=== PATIENT | male | born 1995 | race Caucasian/White ===

== ENCOUNTER 2016-12-18 15:28 | Emergency (ER) | payer MEDICAID ==
[2016-12-18 15:47] VITALS: BP 126/83
--- NOTE | 2016-12-18 16:34 | ER Document Report ---
ED General - General Chief Complaint: Sore Throat Stated Complaint: DIFFICULTY BREATHING/CHEST TIGHT Time Seen by Provider: 12/18/16 16:30 Mode of Arrival: Ambulatory Information source: Patient Notes: 21-year-old male complains about 3 day history of sore throat diffuse body ache sharp anterior chest pain with coughing occasional nonproductive cough temperature 100.3 chills. The patient denies vomiting, diarrhea, abdominal pain , back pain, numbness weakness to extremities, or syncope. Physical Exam: General: Alert, appears well. HEENT: Normocephalic. Atraumatic. PERRLA. Extraocular movements intact. Discs sharp no papilledema tympanic membranes canals clear Oropharynx with erythema swelling and white exudate tonsillar area bilaterally no stridor worsen this drooling Neck: Supple. Tender adenopathy bilaterally no nuchal rigidity Respiratory: No respiratory distress. Clear and equal breath sounds bilaterally. Cardiovascular: Regular rate and rhythm. Abdominal: Normal Inspection. Soft, non-tender. No distension. Normal Bowel Sounds. Back: Non-tender. No deformity or step off. Extremities warm to plus pulses of cyanosis no edema Neurological: Speech clear mentation normal moves extremities well Psychological: Normal affect. Normal Mood. Skin: Warm. Dry. Normal color. TRAVEL OUTSIDE OF THE [place] IN LAST 30 DAYS: No - Related Data Allergies/Adverse Reactions: No Known Allergies Allergy (Verified 12/18/16 16:10) Past Medical History - Social History Smoking Status: Unknown if Ever Smoked Family History: Reviewed & Not Pertinent Patient has suicidal ideation: No Patient has homicidal ideation: No - Medical History Medical History: Negative Renal/ Medical History: Denies: Hx Peritoneal Dialysis - Immunizations Hx Diphtheria, Pertussis, Tetanus Vaccination: Yes - GIVEN TODAY Review of Systems - Review of Systems Constitutional: See HPI EENT: See HPI Cardiovascular: See HPI. denies: Dizziness Respiratory: See HPI Gastrointestinal: See HPI Genitourinary: denies: Burning, Dysuria Musculoskeletal: denies: Leg swelling Skin: denies: Rash Hematologic/Lymphatic: denies: Swollen glands Neurological/Psychological: denies: Weakness, Numbness Physical Exam - Vital signs Vitals: Pulse Resp BP Pulse Ox 108 H 16 126/83 H 98 12/18/16 15:45 12/18/16 15:45 12/18/16 15:45 12/18/16 15:45 Course - Re-evaluation Re-evalutation: 12/18/16 16:32 Presentation consistent with acute pharyngitis. Discharged with antibiotics follow with his physician in [place] - Vital Signs Vital signs: Temp Pulse Resp BP Pulse Ox 102.7 F H 108 H 16 126/83 H 98 12/18/16 15:47 12/18/16 15:45 12/18/16 15:45 12/18/16 15:45 12/18/16 15:45 Discharge - Discharge Clinical Impression: Acute pharyngitis Qualifiers: Pharyngitis/tonsillitis etiology: unspecified etiology Qualified Code(s): J02.9 - Acute pharyngitis, unspecified Condition: Stable Disposition: HOME, SELF-CARE Additional Instructions: Sore Throat Sore throats may be caused by viruses, bacteria, or fungi. Most are due to a virus, and must get better on their own. Bacterial sore throats, particularly those due to "strep," need treatment with antibiotics. If an antibiotic is prescribed, be sure to take the medication for a full 10 days. Failure to take the antibiotic can result in complications such as rheumatic fever. Sometimes, an injection of antibiotics is given instead of pills or liquid. This single "shot" is equal in effectiveness to the oral medication. To relieve symptoms, take acetaminophen for pain. Sip clear liquids frequently, or eat popsicles or ice chips. Anesthetic sprays or lozenges may help. Make sure the air in the room is not too dry. Avoid using decongestants or antihistamines. Call the doctor if there is no improvement in two days, or if you have difficulty breathing, increasing throat pain, high fever, rash, or frequent vomiting. Prescriptions: Azithromycin [Zithromax 250 mg Tablet] 250 mg PO ASDIR PRN #6 tablet PRN Reason: Referrals: [facility] [Provider Group] - Follow up in 1 week
== END 2016-12-18 16:35 | disposition home or self-care (01) ==
LOC: ER 15:28
DX: J02.9 Acute pharyngitis, unspecified (principal); R07.9 Chest pain, unspecified; R05 Cough; R68.83 Chills (without fever)
CPT/HCPCS: 99282

== ENCOUNTER 2018-07-15 10:02 | Emergency (ER) | payer MEDICAID, OTHER ==
--- NOTE | 2018-07-15 11:23 | ER Document Report ---
HPI - HPI Patient complains to provider of: Finger laceration Time Seen by Provider: 07/15/18 11:08 Onset: This morning Onset/Duration: Sudden Quality of pain: Achy Pain Level: 2 Context: Patient states that he cut his finger on a piece of metal on a vehicle around 845. Patient with laceration to the left fourth finger. Patient is right-hand dominant. Patient reports tetanus immunizations currently up-to-date. Associated Symptoms: Other - Left fourth finger laceration Exacerbated by: Movement Relieved by: Denies Similar symptoms previously: No Recently seen / treated by doctor: No - ROS ROS below otherwise negative: Yes Systems Reviewed and Negative: Yes All other systems reviewed and negative - MUSCULOSKELETAL Musculoskeletal: REPORTS: Extremity pain - DERM Skin Color: Normal Skin Problems: Laceration Past Medical History - General Information source: Patient - Social History Smoking Status: Current Every Day Smoker Smoking Education Provided: Yes Frequency of alcohol use: None Drug Abuse: None Occupation: [employer] with: Family Family History: Reviewed & Not Pertinent - Medical History Medical History: Negative Renal/ Medical History: Denies: Hx Peritoneal Dialysis Surgical Hx: Negative - Immunizations Hx Diphtheria, Pertussis, Tetanus Vaccination: Yes - GIVEN TODAY Vertical Provider Document - CONSTITUTIONAL Agree With Documented VS: Yes Exam Limitations: No Limitations General Appearance: WD/WN, No Apparent Distress - INFECTION CONTROL TRAVEL OUTSIDE OF THE [place] IN LAST 30 DAYS: No - HEENT HEENT: Atraumatic, Normocephalic - NECK Neck: Normal Inspection - RESPIRATORY Respiratory: No Respiratory Distress - CARDIOVASCULAR Pulses: Normal: Radial - MUSCULOSKELETAL/EXTREMETIES Musculoskeletal/Extremeties: MAEW, FROM - NEURO Level of Consciousness: Awake, Alert, Appropriate Motor/Sensory: No Motor Deficit, No Sensory Deficit - DERM Integumentary: Warm, Dry, No Rash, Laceration - Superficial 1 cm laceration, wound edges approximated overlying PIP of the left fourth finger Course - Re-evaluation Re-evalutation: 07/15/18 Patient with superficial laceration over left fourth finger. Patient able to flex and extend without causing the wound to dehisce - Vital Signs Vital signs: Temp Pulse Resp BP Pulse Ox 98.6 F 63 16 125/65 100 07/15/18 10:08 07/15/18 10:08 07/15/18 10:08 07/15/18 10:08 07/15/18 10:08 Procedures - Immobilization Left Finger 4th digit Pre-Proc Neuro Vasc Exam: Normal Immobilizer type: Finger splint (Static) Performed by: PCT Post-Proc Neuro Vasc Exam: Normal Alignment checked and good: Yes Discharge - Discharge Clinical Impression: Finger laceration Qualifiers: Encounter type: initial encounter Finger: ring finger Damage to nail status: without damage Foreign body presence: without foreign body Laterality: left Qualified Code(s): S61.215A - Laceration without foreign body of left ring finger without damage to nail, initial encounter Condition: Stable Disposition: HOME, SELF-CARE Instructions: Non-Sutured Laceration ([facility]), Temporary Splint ([facility]) Additional Instructions: Return immediately for any new or worsening symptoms Followup with your primary care provider, call tomorrow to make a followup appointment Wear finger splint for the next 2-3 days and then remove. Forms: Return to Work Referrals: [facility] [Provider Group] - Follow up as needed
[2018-07-15 12:04] VITALS: BP 122/66
== END 2018-07-15 12:04 | disposition home or self-care (01) ==
LOC: ER 10:02
DX: S61.215A Laceration without foreign body of left ring finger without damage to nail, initial encounter (principal); W45.8XXA Other foreign body or object entering through skin, initial encounter; Y92.59 Other trade areas as the place of occurrence of the external cause; Y99.0 Civilian activity done for income or pay; F17.200 Nicotine dependence, unspecified, uncomplicated
CPT/HCPCS: 99282

== ENCOUNTER 2018-08-13 20:51 | Emergency (ER) | payer SELFPAY ==
[2018-08-13 20:57] VITALS: BP 138/81
== END 2018-08-13 22:32 | disposition left against medical advice (07) ==
LOC: ER 20:51
DX: Z53.21 Procedure and treatment not carried out due to patient leaving prior to being seen by health care provider (principal)

== ENCOUNTER 2019-12-28 12:17 | Emergency (ER) | payer SELFPAY ==
[2019-12-28 12:24] VITALS: BP 143/78
--- NOTE | 2019-12-28 12:26 | ER Document Report ---
HPI - HPI Time Seen by Provider: 12/28/19 12:21 Pain Level: 4 Notes: Healthy 24-year-old patient presents to the emergency department with complaints of dental pain. He reports that he has bad teeth and that he was supposed to have extractions done but due to COVID-19 he has been unable to get an appointment. Patient reports dental pain has been ongoing more severe over the last 1 to 2 days. He has taken Tylenol and ibuprofen at home with minimal relief. - REPRODUCTIVE Reproductive: DENIES: : Past Medical History - General Information source: Patient - Social History Smoking Status: Never Smoker Frequency of alcohol use: None Drug Abuse: None Family History: Reviewed & Not Pertinent Patient has homicidal ideation: No - Medical History Medical History: Negative Renal/ Medical History: Denies: Hx Peritoneal Dialysis Surgical Hx: Negative - Immunizations Hx Diphtheria, Pertussis, Tetanus Vaccination: Yes - GIVEN TODAY Vertical Provider Document - CONSTITUTIONAL Notes: PHYSICAL EXAMINATION: GENERAL: Well-appearing, well-nourished and in no acute distress. HEAD: Atraumatic, normocephalic. EYES: Pupils equal round extraocular movements intact, conjunctiva are normal. ENT: Nares patent, fractured tooth noted to tooth #31. No shalini abscess. No trismus. NECK: Normal range of motion LUNGS: No respiratory distress Musculoskeletal: Normal range of motion NEUROLOGICAL: Normal speech, normal gait. PSYCH: Normal mood, normal affect. SKIN: Warm, Dry, normal turgor, no rashes or lesions noted. - INFECTION CONTROL TRAVEL OUTSIDE OF THE [place] IN LAST 30 DAYS: No Course - Re-evaluation Re-evalutation: 12/28/19 12:24 Presentation is most consistent with likely an infected tooth. Airway is patent. Vitals within normal limits. Patient is able swallow without any difficulty. There is no significant facial swelling. No evidence of Geo angina, apical abscess, or airway obstruction. Patient will be started on antibiotics. I've instructed to follow-up with dentistry as earliest ability for definitive management. At this time will discharge with return precautions and follow-up recommendations. Verbal discharge instructions given a the bedside and opportunity for questions given. Medication warnings reviewed. Patient is in agreement with this plan and has verbalized understanding of return precautions and the need for primary care follow-up in the next 24-72 hours. - Vital Signs Vital signs: Temp Pulse Resp BP Pulse Ox 97.8 F 05/19/20 12:21 Discharge - Discharge Clinical Impression: Dental infection Condition: Stable Disposition: HOME, SELF-CARE Additional Instructions: You have been seen for dental pain. It is very important that you follow-up with a dentist for definitive care. Please return if you develop fever greater than 101, swelling in your face, vomiting, difficulty breathing or swallowing, or any other symptoms that are concerning to you. For pain you should take ibuprofen 800 mg every 8 hours as needed. Prescriptions: Hydrocodone/Acetaminophen [Wells 5-325 mg Tablet] 1 tab PO Q6H #8 tablet Penicillin V Potassium [Penicillin Vk 500 mg Tablet] 500 mg PO BID #20 tablet
== END 2019-12-28 12:29 | disposition home or self-care (01) ==
LOC: ER 12:17
DX: K04.7 Periapical abscess without sinus (principal)
CPT/HCPCS: 99283